=== PATIENT | male | born 1990 | race Caucasian/White ===

== ENCOUNTER 2018-07-04 13:35 | Day surgery (SDC) | payer MEDICAID, OTHER ==
--- NOTE | 2018-07-04 14:20 | PDGENHP ---
History & Physical Chief Complaint: Nausea. Diarrhea. Abdominal pain History of Present Illness: 28 yo male with epigastric pain, nausea and emesis periodicall. Also with diarrhea and episodic hematochezia. Pertinent Past, Social, Family History: No significant PMH other than anxiety. SH: Caffeine use. No tobacco. No THC or ETOH. FH: No PUD or colon cancer Relevant Physical Exam: NAD. CTA B/L. RRR without m/r/g. GI soft. NABS. NT/ ND. No HSM Cardiorespiratory Assessment: EGD. Colonoscopy with MAC. ASA II
[2018-07-04] MEDS ORDERED: MIDAZOLAM 2 MG/2 ML VIAL IVP ONE (14:30)
[2018-07-04] MEDS ORDERED: MIDAZOLAM 2 MG/2 ML VIAL ONE ×2 (14:32→14:33)
[2018-07-04] MEDS ORDERED: PROPOFOL/EMULSION 500 MG/50 ML BOTTLE IV ONE (14:33)
--- NOTE | 2018-07-04 14:34 | PDANEPAE ---
ANE Past Medical History - Cardiovascular History Hx Hypertension: No Hx Arrhythmias: No Hx Chest Pain: No Hx Coronary Artery / Peripheral Vascular Disease: No Hx CHF / Valvular Disease: No Hx Palpitations: No - Pulmonary History Hx COPD: No Hx Asthma/Reactive Airway Disease: No Hx Recent Upper Respiratory Infection: No Hx Oxygen in Use at Home: No Hx Sleep Apnea: No Sleep Apnea Screening Result - Last Documented: Negative - Neurologic History Hx Cerebrovascular Accident: No Hx Seizures: No Hx Dementia: No - Endocrine History Hx Diabetes: No - Renal History Hx Renal Disorders: No - Liver History Hx Hepatic Disorders: No - Neurological & Psychiatric Hx Hx Neurological and Psychiatric Disorders: Yes Neurological / Psychiatric History Comment: medical issues trigger anxiety - Cancer History Hx Cancer: No - Congenital Disorder History Hx Congenital Disorders: No - GI History Hx Gastrointestinal Disorders: Yes Gastrointestinal History Comment: acid reflux, bloating,nausea, diarrhea. generalized abd pain - Other Health History Other Health History: none - Chronic Pain History Chronic Pain: No - Surgical History Prior Surgeries: wisdom teeth ANE Review of Systems Review of Systems: - Exercise capacity METS (RN): 5 METS ANE Patient History - Allergies Allergies/Adverse Reactions: No Known Allergies Allergy (Verified 07/04/18 14:13) - Home Medications Home Medications: Fiber 07/01/18 [Last Taken 07/01/18] Klonopin 07/01/18 [Last Taken 07/04/18] Multivitamin 07/01/18 [Last Taken 07/01/18] Omeprazole 07/01/18 [Last Taken 07/02/18] Probiotic 07/01/18 [Last Taken 06/29/18] Montelukast Sodium 07/04/18 [Last Taken 07/02/18] - Smoking Hx Smoking Status: Never smoked - Family Anes Hx Family Hx Anesthesia Complications: none ANE Labs/Vital Signs - Vital Signs Height: 170.18 cm Weight: 73.482 kg ANE Physical Exam - Airway Neck exam: FROM Mallampati Score: Class 1 Mouth exam: normal dental/mouth exam - Pulmonary Pulmonary: no respiratory distress - Cardiovascular Cardiovascular: regular rate and rhythym - ASA Status ASA Status: II ANE Anesthesia Plan Anesthesia Plan: GA with mask Total IV Anesthesia: Yes
[2018-07-04] MEDS ORDERED: LR 1,000 ML IV ONE (14:57)
[2018-07-04] MEDS ORDERED: DIAZEPAM 5 MG/ML 1 ML SYR IVP PRN (14:58)
[2018-07-04] MEDS ORDERED: MEPERIDINE 25 MG/0.5 ML AMP IVP PRN (14:58)
[2018-07-04] MEDS ORDERED: ALBUTEROL 3 ML DEYVIAL IH PRN (14:58)
[2018-07-04] MEDS ORDERED: oxyCODONE IR 5 MG TAB PO PRN (14:58)
[2018-07-04] MEDS ORDERED: HYDROmorphONE/DILAUDID 2 MG/ML INJ IVP PRN (14:58)
[2018-07-04] MEDS ORDERED: fentaNYL 100 MCG/2 ML INJ IVP PRN (14:58)
[2018-07-04] MEDS ORDERED: NALOXONE HCL 0.4 MG/ML INJ IVP PRN (14:58)
[2018-07-04] MEDS ORDERED: DEXAMETHASONE 4 MG/ML VIAL IVP PRN (14:58)
[2018-07-04] MEDS ORDERED: PROMETHAZINE HCL 25 MG/ML INJ IVP PRN (14:58)
[2018-07-04] MEDS ORDERED: ONDANSETRON 4 MG/2 ML VIAL IVP PRN (14:58)
[2018-07-04] MEDS ORDERED: HYDROCODONE/APAP 5/325 TAB PO PRN (14:58)
--- NOTE | 2018-07-04 14:59 | GIREPORT ---
[facility] Surgical Services - Endoscopy Department Patient Name: Michael Simon Procedure Date: 07/04/2018 2:16 PM Patient Type: Outpatient Attending MD/ ER Physician: John Sanchez MD Procedure: Upper GI endoscopy Indications: Epigastric abdominal pain, Nausea Providers: John Sanchez MD Medicines: Propofol per Anesthesia Complications: No immediate complications. Description of Procedure: After obtaining informed consent, the endoscope was passed under direct vision. Throughout the procedure, the patient's blood pressure, pulse, and oxygen saturations were monitored continuously. The Endoscope was intro duced through the mouth, and advanced to the third part of duodenum. The uppe r GI endoscopy was accomplished without difficulty. The patient tolerated th e procedure well. Findings: The esophagus was normal. The stomach was normal. The duodenal bulb, first portion of the duodenum and second portion of the duodenum were normal. Biopsies for histology were taken with a cold for ceps for evaluation of celiac disease. Estimated Blood Loss: Estimated blood loss: none. Post Op Diagnosis: - Normal esophagus. - Normal stomach. - Normal duodenal bulb, first portion of the duodenum and second portio n of the duodenum. Biopsied. Recommendation: - Await pathology results. - Resume previous diet. - Continue present medications. - Patient has a contact number available for emergencies. The signs and symptoms of potential delayed complications were discussed with the pat ient. Return to normal activities tomorrow. Written discharge instructions we re provided to the patient. - Return to physician after school program assistant as previously scheduled. - Thank you for allowing me to be involved in the care of your patient. Attending Participation: I personally performed the entire procedure without the assistance of a fellow, resident or surg ical after school program assistant. John Sanchez MD John Sanchez MD 07/04/2018 2:58:42 PM This report has been signed electronicallyDavid MD Laura Number of Addenda: 0 Note Initiated On: 07/04/2018 2:16 PM [email or web address]
--- NOTE | 2018-07-04 15:13 | GIREPORT ---
[facility] Surgical Services - Endoscopy Department Patient Name: Michael Simon Procedure Date: 07/04/2018 2:25 PM Patient Type: Outpatient Attending MD/ ER Physician: John Sanchez MD Procedure: Colonoscopy Indications: Chronic diarrhea, Hematochezia Providers: John Sanchez MD Medicines: Propofol per Anesthesia Complications: No immediate complications. Description of Procedure: After obtaining informed consent, the scope was passed under direct vis ion. Throughout the procedure, the patient's blood pressure, pulse, and oxyg en saturations were monitored continuously. The Colonoscope with irrigatio n channel was introduced through the anus and advanced to 10 cm into the ileum. The colonoscopy was performed without difficulty. The patient tolerated the procedure well. The quality of the bowel preparation was good. The terminal ileum, ileocecal valve, appendiceal orifice, and rectum we re photographed. Findings: The perianal and digital rectal examinations were normal. Pertinent negatives include normal sphincter tone, no palpable rectal lesions and normal prostate (size, shape, and consistency). The terminal ileum appeared normal. The area from rectum to cecum appeared normal. Biopsies for histology w ere taken with a cold forceps from the right colon and left colon for evalu ation of microscopic colitis. Estimated Blood Loss: Estimated blood loss: none. Post Op Diagnosis: - The examined portion of the ileum was normal. - The rectum to cecum is normal. Biopsied. - No endoscopic cause for his diarrhea. I suspect this is related to hi s fairly severe anxiety. Recommendation: - Await pathology results. - Repeat colonoscopy at age 51 for screening purposes. - Return to physician assistant at surgery as previously scheduled. - Resume previous diet. - Continue present medications. - Patient has a contact number available for emergencies. The signs and symptoms of potential delayed complications were discussed with the pat ient. Return to normal activities tomorrow. Written discharge instructions we re provided to the patient. - Thank you for allowing me to be involved in the care of your patient. Attending Participation: I personally performed the entire procedure without the assistance of a fellow, resident or surg ical assistant at surgery. John Sanchez MD John Sanchez MD 07/04/2018 3:12:48 PM This report has been signed electronicallyDavid MD Laura Number of Addenda: 0 Note Initiated On: 07/04/2018 2:25 PM Total Procedure Duration Time 0 hours 5 minutes 51 seconds [email or web address]
[2018-07-04] MEDS ORDERED: ONDANSETRON 4 MG/2 ML VIAL ONE (15:55)
[2018-07-04 16:22] VITALS: BP 98/68
--- NOTE | 2018-07-07 12:32 | POSTANESTH ---
Post Anesthetic Evaluation Cardiovascular Status: Normal, Stable Respiratory Status: Normal, Stable Level of Consciousness/Mental Status: Moderately Sleepy Pain Control: Adequate, Prn Tx Ordered Nausea/Vomiting Control: Adequate, Prn Tx Ordered Complications Possibly Related to Anesthesia: None Noted
== END 2018-07-04 16:23 | disposition home or self-care (01) ==
LOC: FSGY 13:35
PROVIDERS: ATTEND Internal Medicine Gastroenterology
PROC: 0DBE8ZX Excision of Large Intestine, Via Natural or Artificial Opening Endoscopic, Diagnostic (ICD-10-PCS; principal; 2018-07-04 15:30)
PROC: 0DB98ZX Excision of Duodenum, Via Natural or Artificial Opening Endoscopic, Diagnostic (ICD-10-PCS; principal; 2018-07-04 15:30)
DX: R19.7 Diarrhea, unspecified (principal); R10.13 Epigastric pain
CPT/HCPCS: J2250; J2405; J2704